=== PATIENT | male | born 1955 | race Caucasian/White ===

== ENCOUNTER → 2019-12-31 11:13 | Outpatient (CLI) | payer OTHER, SELFPAY ==
--- NOTE | ~2019-12-31 | US_ITS ---
EXAMINATION: US renal BI DATE: 12/31/2019 11:47 INDICATION: Renal lesion seen on outside institution MRI TECHNIQUE: Multiple ultrasound grayscale images of the kidneys were obtained. COMPARISON: No prior imaging available for comparison. FINDINGS: The right kidney measures 12.3 x 6.8 x 7.6 cm. The left kidney measures 1.4 x 7.3 x 6.3 cm. The kidne ys demonstrate normal echogenicity. 3.0 x 2.3 x 2.2 cm anechoic simple appearing cyst at the lower po le of the left kidney. No other renal lesions identified. There is no hydronephrosis in either kidney . No stones identified. The bladder is normal. IMPRESSION: 1. 3.0 cm simple cyst at the lower pole of the left kidney. Otherwise normal kidneys with no other r enal lesions identified but would correlate with reported prior outside MRI. Reviewed, dictated and finalized at location A. [facility]IN[employer]ING IMPRESSION: 1. 3.0 cm simple cyst at the lower pole of the left kidney. Otherwise normal k idneys with no other renal lesions identified but would correlate with reported prior outside MRI.
== END ==
DX: N28.9 Disorder of kidney and ureter, unspecified (principal); N28.1 Cyst of kidney, acquired
CPT/HCPCS: 76775

== ENCOUNTER → 2021-06-12 12:37 | Outpatient (CLI) | payer OTHER, SELFPAY ==
--- NOTE | ~2021-06-12 | US_ITS ---
EXAMINATION: US renal BI DATE: 06/12/2021 13:15 INDICATION: Renal lesion TECHNIQUE: Multiple grayscale and Doppler ultrasound images of the kidneys were obtained. COMPARISON: 12/31/2019 FINDINGS: The right kidney measures 10.9 x 6 x 5.2 cm. There is a 2.9 cm cyst of the right kidney low er pole. The left kidney measures 10.2 x 7.6 x 7.3 cm. There is a 1 cm cyst of the left kidney lower pole. The kidneys demonstrate normal parenchymal echogenicity. There is no hydronephrosis. The bladde r is normal. IMPRESSION: 1. Cysts of the otherwise unremarkable kidneys. Reviewed, dictated and finalized at location A.
== END ==
PROVIDERS: PCP Family Medicine; Visit Provider Family Medicine
DX: N28.9 Disorder of kidney and ureter, unspecified (principal); N28.1 Cyst of kidney, acquired
CPT/HCPCS: 76775

== ENCOUNTER → 2021-06-12 12:38 | Outpatient (CLI) | payer OTHER, SELFPAY ==
--- NOTE | ~2021-06-12 | US_ITS ---
EXAMINATION: US soft tissue lower back DATE: 06/12/2021 13:15 INDICATION: Lower back surgery for spinal fusion one year prior. Swelling and lump at the left lower back over the surgical scar. TECHNIQUE: Multiple grayscale and Doppler ultrasound images of the soft tissues at left lumbar region of concern were obtained. COMPARISON: None FINDINGS: There is a 6.2 x 3.9 x 5.2 cm complex loculated fluid collection in the subcutaneous tissues at the r egion of concern with approximately 2 mm thick peripheral hypoechoic with wall and with multiple anec hoic fluid pocket by thick and thin irregular hypoechoic septations. Tiny focus of vascular flow seen within the wall of the cyst with no internal flow on color Doppler. An oblique thin hypoec hoic likely surgical scar is seen abutting the caudal margin of the complex cystic lesion. IMPRESSION: 1. Nonspecific 6.2 x 3.9 x 5.2 cm complex loculated subcutaneous fluid collection along a prior surgi ana scar without evident internal vascularity on color Doppler. In location and appearance would favo r an evolving hematoma/seroma. Differential would include abscess in the appropriate clinical setting and neoplasm would be considered much less likely. Reviewed, dictated and finalized at location A. IMPRESSION: 1. Nonspecific 6.2 x 3.9 x 5.2 cm complex loculated subcutaneous fluid collecti on along a prior surgical scar without evident internal vascularity on color Do ppler. In location and appearance would favor an evolving hematoma/seroma. Diff erential would include abscess in the appropriate clinical setting and neoplasm would be considered much less likely.
== END ==
PROVIDERS: PCP Family Medicine
DX: M48.062 Spinal stenosis, lumbar region with neurogenic claudication (principal)
CPT/HCPCS: 76705